=== PATIENT | female | born 1995 | race Two or more races ===

== ENCOUNTER 2022-02-17 15:38 | Emergency (ER) | payer OTHER ==
[~2022-02-17] VITALS: Ht 175.3 cm; Wt 104.5 kg
[2022-02-17] MEDS ORDERED: HYDROcodone-ACET 10/325MG TAB PO ONE (16:15)
[2022-02-17 16:32] LABS: Basophils # (auto) 0.1 10 ^3/uL (0-0.2); Eosinophils # (auto) 0.1 10 ^3/uL (0-0.8); Eosinophils % (auto) 1.4 % (0.0-7.0); Hematocrit 40.8 % (36.0-46.0); Hemoglobin 13.4 g/dL (12.2-16.2); Lymphocytes # (auto) 2.6 10 ^3/uL (0.4-5.4); Lymphocytes % (auto) 26.2 % (10.0-50.0); Mean Corpuscular Hemoglobin 27.7 pg (28.0-32.0); Mean Corpuscular Hgb Conc. 32.9 g/dL (32.0-36.0); Monocytes # (auto) 0.5 10 ^3/uL (0-1.3); Monocytes % (auto) 4.7 % (0.0-12.0); Neutrophils # (auto) 6.7 10 ^3/uL (1.6-8.6); Neutrophils % (auto) 66.7 % (37.0-80.0); Nucleated Red Blood Cells % 0.1 %; Red Blood Cells 4.85 10^6/uL (4.0-5.20); Red Cell Distribution Width 14.3 % (11.8-14.3)
[2022-02-17 16:49] LABS: Partial Thromboplastin Time 27.6 sec (24.6-33.4)
[2022-02-17] MEDS ORDERED: TRAM-297 PO (17:30)
[2022-02-17 17:54] VITALS: BP 136/80
== END 2022-02-17 17:57 | disposition home or self-care (01) ==
LOC: ER 15:42
DX: N93.9 Abnormal uterine and vaginal bleeding, unspecified (principal); J45.909 Unspecified asthma, uncomplicated; Z79.899 Other long term (current) drug therapy
CPT/HCPCS: 36415; 84702; 85025; 85610; 85730